=== PATIENT | female | born 1970 | race Caucasian/White ===

== ENCOUNTER 2017-10-31 09:36 | Emergency (ER) | payer SELFPAY ==
[~2017-10-31] VITALS: Ht 167.6 cm; Wt 93.0 kg
[~2017-10-31 09:36] MED LIST: ADVAIR 250/501 DISK IH; ALBUTEROL17 GM IH; ASPIRIN81 M1 PO; ASPIRIN81 M2 PO; CRESTOR5 MG PO; HYDROCHLOROTHIA25 MG PO; INDOCIN25 MG PO; LOPRESSOR50 MG PO; METOPROLOL SUC100 MG PO; MOTRIN600 MG PO; PERCOCET 5/31 TABLET PO; PRINIVIL10 MG PO; PROAIR HFA8.5 GM IH; PROVENTIL HFA6.7 GM IH; SINGULAIR10 MG PO; TOPAMAX50 MG PO; TOPROL XL50 MG PO; ULTRAM50 MG PO; VALIUM5 MG PO
[2017-10-31 11:17] LABS: HEMATOCRIT 37.6 % (36.0-46.0); MCH 31.7 PG (29.0-34.0); MCHC 34.6 G/DL (30.0-36.0); MCV 91.7 FL (83-99); PLATELET COUNT 226 K/uL (156-360); RBC DIS.WIDTH-CV 12.1 % (11.8-14.6); RBC DIS.WIDTH-SD 40.7 % (39-53); WHITE BLOOD COUNT 10.7 K/uL (4.1-10.2)
[2017-10-31 11:31] LABS: CHLORIDE 107 mEq/L (99-109); SODIUM 139 mEq/L (136-147)
[2017-10-31 11:32] LABS: GLUCOSE 84 mg/dL (70-99)
[2017-10-31 11:36] LABS: CREATININE 0.7 mg/dL (0.6-1.3); GFR ESTIMATE (CALCULATED) > 59 mL/min/
[2017-10-31 11:37] LABS: UREA NITROGEN (BUN) 9 mg/dL (9-23)
[2017-10-31] MEDS ORDERED: PERCOCET 5/31 TABLET PO (13:34)
[2017-10-31] MEDS ORDERED: CLEOCIN300 MG PO (13:34)
[2017-10-31 14:39] VITALS: BP 137/67
== END 2017-10-31 14:40 | disposition home or self-care (01) ==
LOC: EME 09:36
PROVIDERS: Physician Assistant
DX: K04.7 Periapical abscess without sinus (principal); L03.211 Cellulitis of face; K02.9 Dental caries, unspecified; R59.0 Localized enlarged lymph nodes; I10 Essential (primary) hypertension; J45.909 Unspecified asthma, uncomplicated; F17.200 Nicotine dependence, unspecified, uncomplicated; Z79.51 Long term (current) use of inhaled steroids; Z90.49 Acquired absence of other specified parts of digestive tract; Z88.5 Allergy status to narcotic agent; Z88.2 Allergy status to sulfonamides; Z88.0 Allergy status to penicillin; Z91.030 Bee allergy status
CPT/HCPCS: 70491; 80048; 85027; 99281; 99283; J7030